=== PATIENT | female | born 1990 | race Caucasian/White ===

== ENCOUNTER 2020-05-04 11:21 | Emergency (ER) | payer SELFPAY ==
[2020-05-04 11:40] VITALS: BP 106/63
[2020-05-04] MEDS ORDERED: ONDANSETRON 4 MG TAB.RAPDIS PO ONE (11:53)
[2020-05-04] MEDS ORDERED: KETOROLAC TROMETHAMINE INJ/PF 30 MG/1 ML SDV IM ONE (11:53)
[2020-05-04] MEDS ORDERED: NORMAL SALINE 1000 ML 1,000 ML IV ONE (11:56)
--- NOTE | 2020-05-04 11:56 | ER Document Report ---
ED Medical Screen (RME) - General Chief Complaint: Lower Abdominal Pain Stated Complaint: RIGHT FLANK PAIN,FEVER Time Seen by Provider: 05/04/20 11:53 Mode of Arrival: Wheelchair Information source: Patient Notes: 31-year-old female presents to ED for complaint of nausea and vomiting with fevers up to 103 last night. She states she been taking Tylenol Motrin. She is afebrile at this time and has not had any Tylenol since last night. She does have a history of a hysterectomy. She does have blood her urine. She states he still does have her ovaries. She states she sometimes smokes does not drink and uses weed. Patient is alert and oriented respirations regular nonlabored speaking in full sentences. I have greeted and performed a rapid initial assessment of this patient. A comprehensive ED assessment and evaluation of the patient, analysis of test results and completion of medical decision making process will be conducted by an additional ED providers. - Related Data Allergies/Adverse Reactions: amoxicillin Allergy (Verified 05/04/20 11:47) Past Medical History - Social History Chew tobacco use (# tins/day): No Frequency of alcohol use: None Drug Abuse: Marijuana Physical Exam - Vital signs Vitals: Temp Pulse Resp BP Pulse Ox 97.9 F 82 22 H 106/63 100 05/04/20 11:39 05/04/20 11:39 05/04/20 11:39 05/04/20 11:39 05/04/20 11:39 Course - Vital Signs Vital signs: Temp Pulse Resp BP Pulse Ox 97.9 F 82 22 H 106/63 100 05/04/20 11:48 05/04/20 11:39 05/04/20 11:39 05/04/20 11:39 05/04/20 11:39
[2020-05-04 12:16] LABS: ABSOLUTE BASOPHILS # (AUTO) 0.1 10^3/uL (0.0-0.2); ABSOLUTE MONOCYTES (AUTO) 0.2 10^3/uL (0.1-1.4); ABSOLUTE NEUT (AUTO) 11.7 10^3/uL (1.7-8.2); BASOPHILS % (AUTO) 0.6 % (0-2); EOSINOPHILS % (AUTO) 0.4 % (0-6); HEMATOCRIT 39.5 % (36.0-47.0); LYMPHOCYTES % (AUTO) 7.6 % (13-45); MEAN CORPUSCULAR HEMOGLOBIN 28.9 pg (27.0-33.4); MEAN CORPUSCULAR HGB CONC 32.8 g/dL (32.0-36.0); MEAN CORPUSCULAR VOLUME 88 fl (80-97); MONOCYTES % (AUTO) 1.9 % (3-13); PLATELET COUNT 182 10^3/uL (150-450); RED BLOOD COUNT 4.49 10^6/uL (3.72-5.28); RED CELL DISTRIBUTION WIDTH 13.4 % (11.5-14.0); SEGMENTED NEUTROPHILS % (AUTO) 89.5 % (42-78); TOTAL CELLS COUNTED % (AUTO) 100 %; WHITE BLOOD COUNT 13.1 10^3/uL (4.0-10.5)
[2020-05-04 12:28] LABS: APPEARANCE,URINE CLOUDY; BILIRUBIN,URINE NEGATIVE (NEGATIVE); COLOR,URINE YELLOW; GLUCOSE, URINE NEGATIVE (NEGATIVE); KETONES,URINE NEGATIVE (NEGATIVE); LEUKOCYTE ESTERASE,URINE LARGE (NEGATIVE); NITRITE,URINE POSITIVE (NEGATIVE); PROTEIN,URINE 100 mg/dL (NEGATIVE); URINE SPECIFIC GRAVITY 1.018; UROBILINOGEN,URINE NEGATIVE mg/dL (<2.0)
[2020-05-04 12:37] LABS: ALBUMIN 4.4 g/dL (3.5-5.0); ALKALINE PHOSPHATASE 61 U/L (38-126); ANION GAP 9 (5-19); ASPARTATE AMINO TRANSFERASE 38 U/L (14-36); BILIRUBIN,DIRECT 0.1 mg/dL (0.0-0.4); BILIRUBIN,TOTAL 0.8 mg/dL (0.2-1.3); BLOOD UREA NITROGEN 11 mg/dL (7-20); CALCIUM 9.8 mg/dL (8.4-10.2); CARBON DIOXIDE 25 mmol/L (22-30); CHLORIDE 106 mmol/L (98-107); GLUCOSE 108 mg/dL (75-110); POTASSIUM 4.1 mmol/L (3.6-5.0); TOTAL PROTEIN 7.5 g/dL (6.3-8.2)
--- NOTE | 2020-05-04 13:45 | RADIOLOGY REPORT (SQ) ---
EXAM DESCRIPTION: CT ABD/PELVIS NO ORAL OR IV IMAGES COMPLETED DATE/TIME: 05/04/2020 12:06 pm REASON FOR STUDY: right flank pain. Right upper quadrant pain. COMPARISON: None. TECHNIQUE: CT scan of the abdomen and pelvis performed without intravenous or oral contrast. Images reviewed with lung, soft tissue, and bone windows. Reconstructed coronal and sagittal MPR images revi ewed. All images stored on PACS. All CT scanners at this facility use dose modulation, iterative reconstruction, and/or weight based d osing when appropriate to reduce radiation dose to as low as reasonably achievable (ALARA). [facility]: Dose Right [facility]: CareDose [facility]: Dose Right [facility]: Teradose 4D [facility]: [employer] RADIATION DOSE: CT Rad equipment meets quality standard of care and radiation dose reduction techniq ues were employed. CTDIvol: 5.2 mGy. DLP: 271 mGy-cm.mGy. LIMITATIONS: None. FINDINGS: LOWER CHEST: No significant findings. No nodules or infiltrates. NON-CONTRASTED LIVER, SPLEEN, ADRENALS: Evaluation limited by lack of IV contrast. No identified sign ificant masses. PANCREAS: No masses. No peripancreatic inflammatory changes. GALLBLADDER: No identified stones by CT criteria. No inflammatory changes to suggest cholecystitis. RIGHT KIDNEY AND URETER: No suspicious masses. Assessment limited by lack of IV contrast. No renal or ureteral calculi. Very mild right hydronephrosis and hydroureter with mild surrounding perinephr ic inflammatory change. LEFT KIDNEY AND URETER: No suspicious masses. Assessment limited by lack of IV contrast. No signifi cant calcifications. No hydronephrosis or hydroureter. AORTA AND RETROPERITONEUM: No aneurysm. No retroperitoneal masses or adenopathy. BOWEL AND PERITONEAL CAVITY: No obvious masses or inflammatory changes. No free fluid. APPENDIX: Normal. PELVIS, BLADDER, AND ABDOMINAL WALL:There is ill-defined inflammatory change surrounding the urinary bladder. No definite bladder wall thickening. No intraluminal bladder mass. Small amount of free f luid in the pelvic cul-de-sac. Post hysterectomy. No adnexal mass. No pelvic adenopathy. No herni a or subcutaneous mass. BONES: No significant findings. OTHER: No other significant finding. IMPRESSION: 1. Diffuse urinary bladder wall thickening with surrounding inflammatory change and small amount of f ree fluid in the pelvis, highly suggestive of cystitis. Correlation with patient's urinalysis recomm ended. 2. Very mild right hydronephrosis and hydroureter with surrounding inflammatory change which may repr esent right pyelonephritis. Clinical correlation. There are no renal or ureteral calculi. COMMENT: Quality ID # [id number]: Final reports with documentation of one or more dose reduction techniques (e.g., Automated exposure control, adjustment of the mA and/or kV according to patient size, use of iterative reconstruction technique) TECHNICAL DOCUMENTATION: JOB ID: [id number] 2010 [employer]- All Rights Reserved Reading location - IP/workstation name: [email or web address]
== END 2020-05-04 18:20 | disposition left against medical advice (07) ==
LOC: ER 11:21
DX: R11.2 Nausea with vomiting, unspecified (principal); R50.9 Fever, unspecified; R31.9 Hematuria, unspecified; N13.30 Unspecified hydronephrosis; R10.9 Unspecified abdominal pain; R10.11 Right upper quadrant pain; F17.200 Nicotine dependence, unspecified, uncomplicated; F12.10 Cannabis abuse, uncomplicated; Z90.710 Acquired absence of both cervix and uterus; Z88.0 Allergy status to penicillin; Z53.20 Procedure and treatment not carried out because of patient's decision for unspecified reasons
CPT/HCPCS: 99281; 96372; 36415; 87086; 83690; 85025; 87088; 80053; 81001; 87186; 74176; S0119; J1885

== ENCOUNTER 2020-05-04 22:09 | Emergency (ER) | payer SELFPAY ==
[2020-05-04 22:50] VITALS: BP 108/62
== END 2020-05-04 23:16 | disposition left against medical advice (07) ==
LOC: ER 22:09
DX: Z53.21 Procedure and treatment not carried out due to patient leaving prior to being seen by health care provider (principal)

== ENCOUNTER 2020-05-07 12:33 | Emergency (ER) | payer SELFPAY ==
[2020-05-07 13:56] LABS: ABSOLUTE LYMPHOCYTES (AUTO) 0.9 10^3/uL (0.5-4.7); ABSOLUTE MONOCYTES (AUTO) 0.8 10^3/uL (0.1-1.4); ABSOLUTE NEUT (AUTO) 9.1 10^3/uL (1.7-8.2); BASOPHILS % (AUTO) 0.2 % (0-2); HEMATOCRIT 41.8 % (36.0-47.0); HEMOGLOBIN 14.3 g/dL (12.0-15.5); MEAN CORPUSCULAR HGB CONC 34.1 g/dL (32.0-36.0); MEAN CORPUSCULAR VOLUME 85 fl (80-97); MONOCYTES % (AUTO) 7.7 % (3-13); PLATELET COUNT 201 10^3/uL (150-450); RED BLOOD COUNT 4.91 10^6/uL (3.72-5.28); RED CELL DISTRIBUTION WIDTH 13.2 % (11.5-14.0); SEGMENTED NEUTROPHILS % (AUTO) 84.1 % (42-78); TOTAL CELLS COUNTED % (AUTO) 100 %; WHITE BLOOD COUNT 10.8 10^3/uL (4.0-10.5)
[2020-05-07 14:11] LABS: APPEARANCE,URINE TURBID; BILIRUBIN,URINE NEGATIVE (NEGATIVE); GLUCOSE, URINE NEGATIVE (NEGATIVE); KETONES,URINE NEGATIVE (NEGATIVE); LEUKOCYTE ESTERASE,URINE LARGE (NEGATIVE); NITRITE,URINE NEGATIVE (NEGATIVE); PROTEIN,URINE >=500 mg/dL (NEGATIVE); URINE SPECIFIC GRAVITY 1.023; UROBILINOGEN,URINE NEGATIVE mg/dL (<2.0)
[2020-05-07 14:12] LABS: ALBUMIN 4.3 g/dL (3.5-5.0); ALKALINE PHOSPHATASE 88 U/L (38-126); ANION GAP 17 (5-19); ASPARTATE AMINO TRANSFERASE 36 U/L (14-36); BILIRUBIN,DIRECT 0.2 mg/dL (0.0-0.4); BILIRUBIN,TOTAL 0.6 mg/dL (0.2-1.3); BLOOD UREA NITROGEN 20 mg/dL (7-20); CALCIUM 10.1 mg/dL (8.4-10.2); CARBON DIOXIDE 19 mmol/L (22-30); CHLORIDE 99 mmol/L (98-107); COLOR,URINE YELLOW; GLUCOSE 142 mg/dL (75-110); POTASSIUM 3.2 mmol/L (3.6-5.0); TOTAL PROTEIN 7.9 g/dL (6.3-8.2)
[2020-05-07] MEDS ORDERED: ONDANSETRON HCL INJ/PF 4 MG/2 ML SDV IV ONE (14:14)
--- NOTE | 2020-05-07 14:14 | ER Document Report ---
ED Medical Screen (RME) - General Chief Complaint: Nausea/Vomiting/Diarrhea Stated Complaint: VOMITING,FEVER Time Seen by Provider: 05/07/20 14:14 - Related Data Allergies/Adverse Reactions: amoxicillin Allergy (Verified 05/04/20 11:47) Past Medical History - Social History Chew tobacco use (# tins/day): No Frequency of alcohol use: None Drug Abuse: Marijuana Past Surgical History: Reports: Hx Hysterectomy Physical Exam - Vital signs Vitals: Temp Pulse Resp BP Pulse Ox 98.7 F 76 22 H 145/70 H 100 05/07/20 12:46 05/07/20 12:46 05/07/20 12:46 05/07/20 12:46 05/07/20 12:46 Course - Vital Signs Vital signs: Temp Pulse Resp BP Pulse Ox 98.7 F 76 22 H 145/70 H 100 05/07/20 12:46 05/07/20 12:46 05/07/20 12:46 05/07/20 12:46 05/07/20 12:46 - Laboratory Result Diagrams: 05/07/20 13:06 05/07/20 13:06 Laboratory results interpreted by me: 05/07/20 05/07/20 05/07/20 13:06 13:06 13:06 WBC 10.8 H Lymph % (Auto) 8.0 L Absolute Neuts (auto) 9.1 H Seg Neutrophils % 84.1 H Sodium 134.5 L Potassium 3.2 L Carbon Dioxide 19 L Est GFR (MDRD) Non-Af 51 L Glucose 142 H Urine Protein >=500 H Urine Blood MODERATE H Ur Leukocyte Esterase LARGE H
[2020-05-07] MEDS ORDERED: CEFTRIAXONE 1 GM/D5W RTU 1 GM/50 ML RTUPB IV ONE (14:29)
[2020-05-07] MEDS: NORMAL SALINE 1000 ML 1,000 ML IV PRN ×2 (14:30→15:24)
--- NOTE | 2020-05-07 14:31 | ER Document Report ---
ED Medical Screen (RME) - General Chief Complaint: Nausea/Vomiting/Diarrhea Stated Complaint: VOMITING,FEVER Time Seen by Provider: 05/07/20 14:14 Mode of Arrival: Medic Information source: Patient Notes: 29-year-old female presented to ED for nausea and vomiting off and on for a week worse for the last 3 days. She states she was seen here Thursday and was triaged and then left because she got tired of waiting. She states she then came back later in the day and left without being seen. The first time when she was here her labs and CT showed she had pyelonephritis and a urinary tract i nfection. She did not stay to get treated. I have ordered blood IV fluids Zofran and Rocephin IV. I have spoken with Dr. Baltazar who stated he would pick the patient up and complete her assessment. I have also ordered that she can have ice chips while she is waiting. Patient is alert oriented respirations regular nonlabored speaking in full sentences. I have greeted and performed a rapid initial assessment of this patient. A comprehensive ED assessment and evaluation of the patient, analysis of test results and completion of medical decision making process will be conducted by an additional ED providers. - Related Data Allergies/Adverse Reactions: amoxicillin Allergy (Verified 05/04/20 11:47) Past Medical History - Social History Chew tobacco use (# tins/day): No Frequency of alcohol use: None Drug Abuse: Marijuana Past Surgical History: Reports: Hx Hysterectomy Physical Exam - Vital signs Vitals: Temp Pulse Resp BP Pulse Ox 98.7 F 76 22 H 145/70 H 100 05/07/20 12:46 05/07/20 12:46 05/07/20 12:46 05/07/20 12:46 05/07/20 12:46 Course - Vital Signs Vital signs: Temp Pulse Resp BP Pulse Ox 98.7 F 76 22 H 145/70 H 100 05/07/20 12:46 05/07/20 12:46 05/07/20 12:46 05/07/20 12:46 05/07/20 12:46 - Laboratory Result Diagrams: 05/07/20 13:06 05/07/20 13:06 Laboratory results interpreted by me: 05/07/20 05/07/20 05/07/20 13:06 13:06 13:06 WBC 10.8 H Lymph % (Auto) 8.0 L Absolute Neuts (auto) 9.1 H Seg Neutrophils % 84.1 H Sodium 134.5 L Potassium 3.2 L Carbon Dioxide 19 L Est GFR (MDRD) Non-Af 51 L Glucose 142 H Urine Protein >=500 H Urine Blood MODERATE H Ur Leukocyte Esterase LARGE H
--- NOTE | 2020-05-07 16:21 | ER Document Report ---
ED General - General Chief Complaint: Nausea/Vomiting/Diarrhea Stated Complaint: VOMITING,FEVER Time Seen by Provider: 05/07/20 14:14 Mode of Arrival: Ambulatory Information source: Patient Notes: This 29-year-old woman presents to the emergency department with a history of seen in the ER as a triage patient with symptoms suggestive of pyelonephritis. She had nausea and vomiting with fever and back pain urine which was positive for pyuria. She returns to the emergency department today with continued symptoms of nausea vomiting and dysuria. Urine culture was performed on the urine when she was seen in triage 3 days ago. Resulting in E. coli which is sensitive to most antibiotics resistance to amoxicillin and trimethoprim sulfamethoxazole. - Related Data Allergies/Adverse Reactions: amoxicillin Allergy (Verified 05/04/20 11:47) Past Medical History - General Information source: Patient - Social History Smoking Status: Current Every Day Smoker Chew tobacco use (# tins/day): No Frequency of alcohol use: None Drug Abuse: Marijuana Family History: Reviewed & Not Pertinent Patient has homicidal ideation: No Past Surgical History: Reports: Hx Hysterectomy Review of Systems - Review of Systems Notes: Constitutional: Negative for fever. HENT: Negative for sore throat. Eyes: Negative for visual changes. Cardiovascular: Negative for chest pain. Respiratory: Negative for shortness of breath. Gastrointestinal: + Nausea and vomiting Genitourinary: + Dysuria. Musculoskeletal: Negative for back pain. Skin: Negative for rash. Neurological: Negative for headaches, weakness or numbness. 10 point ROS negative except as marked above and in HPI. Physical Exam - Vital signs Vitals: Temp Pulse Resp BP Pulse Ox 98.7 F 76 22 H 145/70 H 100 05/07/20 12:46 05/07/20 12:46 05/07/20 12:46 05/07/20 12:46 05/07/20 12:46 - Notes Notes: PHYSICAL EXAMINATION: Physical Exam: General: Well-nourished well-developed 29-year-old woman in no acute distress HEENT: NC/AT, pupils equal round and reactive to light, MM moist,nares clear, oropharynx clear, airway patent Neck: supple, no adenopathy, no masses. Good range of motion Lungs: clear, no wheezing, no rales no rhonchi CVS: Regular rate and rhythm no murmur gallop or rub Abdomen: Soft, active, nontender, no masses, no hepatosplenomegaly Ext: No edema, clubbing or cyanosis. Neuro: Alert and responsive, moving all 4 extremities on command, cranial nerves intact, no focal findings Skin: Intact no open lesions, no rash Course - Vital Signs Vital signs: Temp Pulse Resp BP Pulse Ox 100.8 F H 76 23 H 105/66 96 05/07/20 17:21 05/07/20 12:46 05/07/20 16:01 05/07/20 16:00 05/07/20 16:01 - Laboratory Result Diagrams: 05/07/20 13:06 05/07/20 13:06 Laboratory results interpreted by me: 05/07/20 05/07/20 05/07/20 13:06 13:06 13:06 WBC 10.8 H Lymph % (Auto) 8.0 L Absolute Neuts (auto) 9.1 H Seg Neutrophils % 84.1 H Sodium 134.5 L Potassium 3.2 L Carbon Dioxide 19 L Est GFR (MDRD) Non-Af 51 L Glucose 142 H Urine Protein >=500 H Urine Blood MODERATE H Ur Leukocyte Esterase LARGE H 05/07/20 16:43 I have reviewed laboratory data and used this information for the treatment decisions regarding the patient. - Diagnostic Test Radiology reviewed: Image reviewed, Reports reviewed Discharge - Discharge Clinical Impression: Urinary tract infection Qualifiers: Urinary tract infection type: site unspecified Hematuria presence: with hematuria Qualified Code(s): N39.0 - Urinary tract infection, site not specified Nausea and vomiting Qualifiers: Vomiting type: unspecified Vomiting Intractability: unspecified Qualified Code(s): R11.2 - Nausea with vomiting, unspecified Condition: Good Disposition: HOME, SELF-CARE Instructions: Urinary Tract Infection ([facility]) Additional Instructions: You were seen in the emergency department with nausea vomiting and back pain associated with a urinary tract infection. Please take your medications as prescribed cefdinir 300 mg twice daily and Zofran 4 mg as needed for nausea and vomiting. Please push fluids, use Tylenol or ibuprofen for pain and follow-up with your primary care doctor for repeat urinalysis in approximately 2 weeks. If your symptoms are worsening or if you have other concerns you may return to the emergency department for further evaluation and treatment HOME CARE INSTRUCTIONS & INFORMATION: Thank you for choosing us for your medical needs. We hope you're satisfied with the care you received. After you leave, you must properly care for your problem and, at the same time, observe its progress. Any condition can change. Some illnesses can change rapidly over hours or days. If your condition worsens, return to the Emergency Department or see your physician promptly. ABOUT YOUR X-RAYS AND EKG'S: If you had an EKG or X-rays taken, they have been read by the Emergency Physician. The X-rays and EKG's will also be read by a Radiologist or Antenna Rigger within 24 hours. If discrepancies are noted, you will be notified by telephone. Please be certain the ED has a correct telephone number & address where you can be reached. Also, realize that some fractures or abnormalities do not show up on initial X-rays. If your symptoms continue, see your physician. ABOUT YOUR LABORATORY TEST: If you had laboratory tests, the results have been reviewed by the Emergency Physician. Some test results (for example cultures) may not be available for several days. You will be contacted if any test result shows you need additional treatment. Please be certain the ED has a correct telephone number and address where you can be reached. ABOUT YOUR MEDICATIONS: You will receive instructions on how to take your medicine on the prescription label you receive. Additional information may be provided by the Pharmacy. If you have questions afterwards, call the ED for clarification or further instructions. Some prescribed medications may cause drowsiness. Do not perform tasks such as driving a car or operating machinery without consulting your Pharmacist. If you feel you need a refill of pain medication, your condition will need re-evaluation. Please do not call for a refill of any medication. ABOUT YOUR SIGNATURE: Signature of this document acknowledges to followin. Understanding that you received emergency treatment and that you may be released before al medical problems are known or treated. Please be certain the ED has a correct phone number & address where you can be reached. 2. Acknowledgement that you will arrange for follow-up care as recommended. 3. Authorization for the Emergency Physician to provide information to your follow-up Physician in order to maximize your care. AT ANY TIME, IF YOUR SYMPTOMS CHANGE SIGNIFICANTLY OR WORSEN OR YOU DEVELOP NEW SYMPTOMS, RETURN TO THE EMERGENCY DEPARTMENT IMMEDIATELY FOR RE-EVALUATION. OUR GOAL IS TO PROVIDE EXCELLENT MEDICAL CARE! WE HOPE THAT WE HAVE MET YOUR EXPECTATIONS DURING YOUR EMERGENCY DEPARTMENT VISIT AND THAT YOU FEEL YOU HAVE RECEIVED EXCELLENT CARE! Prescriptions: Cefdinir 300 mg PO BID #20 capsule Ondansetron [Zofran Odt 4 mg Tablet] 1 - 2 tab PO Q4H PRN #12 tab.rapdis PRN Reason: For Nausea/Vomiting
[2020-05-07 16:27] VITALS: BP 105/66
== END 2020-05-07 17:21 | disposition home or self-care (01) ==
LOC: ER 12:33
DX: N39.0 Urinary tract infection, site not specified (principal); R11.2 Nausea with vomiting, unspecified; R19.7 Diarrhea, unspecified; M54.9 Dorsalgia, unspecified; F17.200 Nicotine dependence, unspecified, uncomplicated; Z88.0 Allergy status to penicillin
CPT/HCPCS: 99284; 96361; 96375; 96365; 36415; 85025; 80053; 81001; J2405; J7030; J0696